=== PATIENT | female | born 1960 | race Caucasian/White ===

== ENCOUNTER 2016-05-05 10:26 | Emergency (ER) | payer OTHER ==
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
--- NOTE | 2016-05-06 07:58 | ED MAR SUMMARY ---
..... Medication Administration Record [facility] [address] [place], [place] [id number] Patient: ROE RUTLEDGE Visit ID: [id number] 56y, F Weight: 74.8 kg Height/Length: 64 in BMI: 28.3 ALLERGIES: No Known Drug Allergy
--- NOTE | 2016-05-06 07:58 | ED DISCHARGE INSTRUCTIONS ---
Patient: ROE RUTLEDGE General Instructions [facility] VisitID: [id number] [place] [address] 56y, F Registration Date/Time: 05/05/2016 Essential hypertension. 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 Sensory deficit present. No radiculopathy. Episodic tension-type headache resistant to treatment. INSTRUCTIONS Do not work for three. No alcohol until released. Warnings: Further evaluation is necessary in order to conduct further tests and assess the possibility of serious illness. It is very important to follow up with a physician. SEDATIVE MEDICATION: You were given sedative medication during your visit. Do not drive or operate dangerous machinery. CONTROLLED SUBSTANCE WARNINGS. GENERAL WARNINGS: Return or contact your physician immediately if your condition worsens or changes unexpectedly, if not improving as expected, or if other problems arise. Your Current Medications: CONTINUE TAKING THE FOLLOWING MEDICATIONS: Amitriptyline HCl Oral. Atenolol Oral : 50 mg daily, out of med. Baclofen 10mg day*. FLUoxetine HCl Oral : 20 mg 4x a day. Hydrochlorothiazide Oral : 25 mg 2x a day. Tramadol HCL Oral : 50 mg, prn, out of med. Prescription Medications: Hydrocodone/APAP 5mg/325mg: take 1 to 2 orally every 6 hours as needed for pain. Dispense fifteen (15). No refills. OTC Medications: Acetaminophen (available over the counter): take according to label instructions. Follow-up: Screening today revealed the patient's blood pressure to be in the hypertensive range. The patient should follow up with a primary care provider for blood pressure management. ADDITIONAL INFORMATION Tension Headache Muscle Tension Headache (also called "stress headache") is a very common cause of head pain. Under stress, some people tense the muscles of their shoulder, neck and scalp without knowing it. If this lasts long enough, a headache can occur. These headaches can be very painful and last for hours or even days. Home Care: If you were given pain medicine for this headache, do not drive yourself home. Arrange for a ride, instead. When you get home, try to sleep. You should feel much better when you wake up. Heat to the back of your neck may relieve neck spasm. Drink only clear liquids or eat a very light diet to avoid nausea/vomiting until symptoms improve. Preventing Future Headaches Identify the sources of stress in your life. These may not be obvious! Learn new ways to handle your stress, such as regular exercise, biofeedback, self-hypnosis and meditation. For more information about this, consult your doctor or go to a local bookstore and review the many books and tapes on this subject. At the first sign of a tension headache, take time out if possible. Remove yourself from the stressful situation, find a quiet comfortable place to sit or lie down and let yourself relax. Heat and deep massage of the tight areas in the neck and shoulders may help reduce muscle spasm. Medicine, such as ibuprofen (Advil or Motrin) or a prescribed muscle relaxant may be helpful at this point. Follow Up with your doctor if the headache is not better within the next 24 hours. If you have frequent headaches you should discuss a treatment plan with your primary care doctor. Ask if you can have medicine to take at home the next time you get a bad headache. This may avoid the need for a visit to the emergency department in the future. Poorly controlled chronic headaches may require a referral to a neurologist (headache specialist). Get Prompt Medical Attention if any of the following occur: Worsening of your head pain or no improvement within 24 hours Repeated vomiting (unable to keep liquids down) Fever of 100.4F (38C) or higher, or as directed by your healthcare provider Stiff neck Extreme drowsiness, confusion or fainting Dizziness, vertigo (dizziness with spinning sensation) Weakness of an arm or leg or one side of the face Difficulty with speech or vision High Blood Pressure --Established High Blood Pressure (Hypertension) is a chronic disease. The cause is unknown in most cases. It can usually be controlled with lifestyle changes and/or medicines. Symptoms of high blood pressure may include headache, dizziness, visual changes, chest pain and shortness of breath. Sometimes it causes no symptoms at all. However, even if there are no symptoms, untreated high blood pressure increases the risk of heart attack, also known as acute myocardial infarction, or AMI, and stroke. It is a serious health risk and should not be ignored. A normal blood pressure is 120/80 or less. The first (top) number is the "systolic" pressure. The second (bottom) number is the "diastolic" pressure. Hypertension exists when either the top number is 140 or higher, OR the bottom number is 90 or higher on repeated measurements. Home Care: All patients with high blood pressure should do the following to lower their pressure. If you are on medicines, then these methods may reduce or eliminate your need for medicines in the future. Begin a weight loss program if you are overweight. Reduce your salt intake. Avoid high salt foods (olives, pickles, smoked meats, salted potato chips, etc.). Do not add salt to your food at the table. Use only small amounts of salt when cooking. Begin an exercise program. Discuss with your doctor what type of exercise program would be best for you. It doesn't have to be difficult. Even brisk walking for 20 minutes three times a week is a good form of exercise. Avoid medicines which contain heart stimulants. This includes many cold and sinus decongestant pills and sprays as well as diet pills. Check the warnings about hypertension on the label. Stimulants such as amphetamine or cocaine could be lethal for someone with hypertension. Never take these. Limit your caffeine intake or switch to caffeine-free products. Stop smoking. If you are a long-time smoker, this can be hard. Enroll in a stop-smoking program to improve your chance of success. Learning how to handle stress better is an important part of any program to lower blood pressure. Learn about relaxation methods such as meditation, yoga or biofeedback. If medicines were prescribed, take them exactly as directed. Missing doses may cause your blood pressure get out of control. Consider buying an automatic blood pressure machine (available at most pharmacies). Use this to monitor your blood pressure at home and report the results to your doctor. Follow Up: Regular visits to your own physician for blood pressure checks and medicine adjustment is an important part of your care. Make a follow-up appointment as directed by our staff. Get Prompt Medical Attention if any of the following occur: Chest pain or shortness of breath Severe headache Throbbing or rushing sound in the ears Nosebleed Sudden severe abdominal pain Extreme drowsiness, confusion or fainting Dizziness or vertigo (dizziness with spinning sensation) Weakness of an arm or leg or one side of the face Difficulty with speech or vision Back Pain [Acute Or Chronic] Back pain is usually caused by an injury to the muscles or ligaments of the spine. Sometimes the disks that separate each bone in the spine may bulge and cause pain by pressing on a nearby nerve. Back pain may also appear after a sudden twisting/bending force (such as in a car accident), after a simple awkward movement, or lifting something heavy with poor body positioning. In either case, muscle spasm is often present and adds to the pain. Acute back pain usually gets better in one to two weeks. Back pain related to disk disease, arthritis in the spinal joints or spinal stenosis (narrowing of the spinal canal) can become chronic and last for months or years. Unless you had a physical injury (for example, a car accident or fall) X-rays are usually not ordered for the initial evaluation of back pain. If pain continues and does not respond to medical treatment, x-rays and other tests may be performed at a later time. Home Care: You may need to stay in bed the first few days. But, as soon as possible, begin sitting or walking to avoid problems with prolonged bed rest (muscle weakness, worsening back stiffness and pain, blood clots in the legs). When in bed, try to find a position of comfort. A firm mattress is best. Try lying flat on your back with pillows under your knees. You can also try lying on your side with your knees bent up towards your chest and a pillow between your knees. Avoid prolonged sitting. This puts more stress on the lower back than standing or walking. During the first two days after injury, apply an ICE PACK to the painful area for 20 minutes every 2-4 hours. This will reduce swelling and pain. HEAT (hot shower, hot bath or heating pad) works well for muscle spasm. You can start with ice, then switch to heat after two days. Some patients feel best alternating ice and heat treatments. Use the one method that feels the best to you. You may use acetaminophen (Tylenol) or ibuprofen (Motrin, Advil) to control pain, unless another pain medicine was prescribed. [NOTE: If you have chronic liver or kidney disease or ever had a stomach ulcer or GI bleeding, talk with your doctor before using these medicines.] Be aware of safe lifting methods and do not lift anything over 15 pounds until all the pain is gone. Follow Up with your doctor or this facility if your symptoms do not start to improve after one week. Physical therapy may be needed. [NOTE: If X-rays were taken, they will be reviewed by a radiologist. You will be notified of any new findings that may affect your care.] Get Prompt Medical Attention if any of the following occur: Pain becomes worse or spreads to your legs Weakness or numbness in one or both legs Loss of bowel or bladder control Numbness in the groin or genital area Hydrocodone Bitartrate, Acetaminophen Oral tablet What is this medicine? ACETAMINOPHEN; HYDROCODONE (a set a MICHELLE chang fen; isabella droe KOE done) is a pain reliever. It is used to treat mild to moderate pain. How should I use this medicine? Take this medicine by mouth. Swallow it with a full glass of water. Follow the directions on the prescription label. If the medicine upsets your stomach, take the medicine with food or milk. Do not take more than you are told to take. Talk to your sales and marketing representative regarding the use of this medicine in children. This medicine is not approved for use in children. What side effects may I notice from receiving this medicine? Side effects that you should report to your doctor or health home care rn as soon as possible: allergic reactions like skin rash, itching or hives, swelling of the face, lips, or tongue breathing problems confusion feeling faint or lightheaded, falls stomach pain yellowing of the eyes or skin Side effects that usually do not require medical attention (report to your doctor or health home care rn if they continue or are bothersome): nausea, vomiting stomach upset What may interact with this medicine? alcohol antihistamines isoniazid medicines for depression, anxiety, or psychotic disturbances medicines for sleep muscle relaxants naltrexone narcotic medicines (opiates) for pain phenobarbital ritonavir tramadol What if I miss a dose? If you miss a dose, take it as soon as you can. If it is almost time for your next dose, take only that dose. Do not take double or extra doses. Where should I keep my medicine? Keep out of the reach of children. This medicine can be abused. Keep your medicine in a safe place to protect it from theft. Do not share this medicine with anyone. Selling or giving away this medicine is dangerous and against the law. Store at room temperature between 15 and 30 degrees C (59 and 86 degrees F). Protect from light. Keep container tightly closed. Throw away any unused medicine after the expiration date. Discard unused medicine and used packaging carefully. Pets and children can be harmed if they find used or lost packages. What should I tell my health care provider before I take this medicine? They need to know if you have any of these conditions: brain tumor Crohn's disease, inflammatory bowel disease, or ulcerative colitis drink more than 3 alcohol-containing drinks per day drug abuse or addiction head injury heart or circulation problems kidney disease or problems going to the bathroom liver disease lung disease, asthma, or breathing problems an unusual or allergic reaction to acetaminophen, hydrocodone, other opioid analgesics, other medicines, foods, dyes, or preservatives or trying to get breast-feeding What should I watch for while using this medicine? Tell your doctor or health home care rn if your pain does not go away, if it gets worse, or if you have new or a different type of pain. You may develop tolerance to the medicine. Tolerance means that you will need a higher dose of the medicine for pain relief. Tolerance is normal and is expected if you take the medicine for a long time. Do not suddenly stop taking your medicine because you may develop a severe reaction. Your body becomes used to the medicine. This does NOT mean you are addicted. Addiction is a behavior related to getting and using a drug for a non-medical reason. If you have pain, you have a medical reason to take pain medicine. Your doctor will tell you how much medicine to take. If your doctor wants you to stop the medicine, the dose will be slowly lowered over time to avoid any side effects. You may get drowsy or dizzy when you first start taking the medicine or change doses. Do not drive, use machinery, or do anything that may be dangerous until you know how the medicine affects you. Stand or sit up slowly. There are different types of narcotic medicines (opiates) for pain. If you take more than one type at the same time, you may have more side effects. Give your health care provider a list of all medicines you use. Your doctor will tell you how much medicine to take. Do not take more medicine than directed. Call emergency for help if you have problems breathing. The medicine will cause constipation. Try to have a bowel movement at least every 2 to 3 days. If you do not have a bowel movement for 3 days, call your doctor or health home care rn. Too much acetaminophen can be very dangerous. Do not take Tylenol (acetaminophen) or medicines that contain acetaminophen with this medicine. Many non-prescription medicines contain acetaminophen. Always read the labels carefully. You have been given the following additional information: Headache, Tension Hypertension, Established Back Pain (Acute Or Chronic) Hydrocodone Bitartrate, Acetaminophen Oral tablet Do not work for three. (Electronically signed by Jaylen Odom DO 05/06/2016 7:58)
--- NOTE | 2016-05-06 07:58 | ED MED RECONCILIATION SUMMARY ---
Patient: ROE RUTLEDGE Medication Reconciliation Report [facility] VisitID: [id number] [address] [place] [address] 56y, F Registration Date/Time: 05/05/2016 Weight: 74.8 kg Height/Length: 64 in. BMI: 28.3 ALLERGIES: No Known Drug Allergy The patient's Home Medications are listed below: CONTINUE TAKING THE FOLLOWING MEDICATIONS: Amitriptyline HCl Oral Atenolol Oral 50 mg, daily, out of med Baclofen 10mg day FLUoxetine HCl Oral 20 mg, 4x a day Hydrochlorothiazide Oral 25 mg, 2x a day Tramadol HCL Oral 50 mg, out of med The source(s) of the original Home Medication information: patient The following Medications were given to the patient in the Emergency Department: None. The following Medications were prescribed to the patient: Acetaminophen (available over the counter): take according to label instructions. -- Jaylen Odom DO Hydrocodone/APAP 5mg/325mg: take 1 to 2 orally every 6 hours as needed for pain. Dispense fifteen (15). No refills. -- Jaylen Odom DO
--- NOTE | 2016-05-06 07:58 | ED MED RECONCILIATION SUMMARY ---
Patient: ROE RUTLEDGE Medication Reconciliation Report [facility] VisitID: [id number] [address] [place] [address] 56y, F Registration Date/Time: 05/05/2016 Weight: 74.8 kg Height/Length: 64 in. BMI: 28.3 ALLERGIES: No Known Drug Allergy The patient's Home Medications are listed below: CONTINUE TAKING THE FOLLOWING MEDICATIONS: Amitriptyline HCl Oral Atenolol Oral 50 mg, daily, out of med Baclofen 10mg day FLUoxetine HCl Oral 20 mg, 4x a day Hydrochlorothiazide Oral 25 mg, 2x a day Tramadol HCL Oral 50 mg, out of med The source(s) of the original Home Medication information: patient The following Medications were given to the patient in the Emergency Department: None. The following Medications were prescribed to the patient: Acetaminophen (available over the counter): take according to label instructions. -- Jaylen Odom DO Hydrocodone/APAP 5mg/325mg: take 1 to 2 orally every 6 hours as needed for pain. Dispense fifteen (15). No refills. -- Jaylen Odom DO
--- NOTE | 2016-05-06 07:58 | ED MAR SUMMARY ---
..... Medication Administration Record [facility] [address] [place], [place] [id number] Patient: ROE RUTLEDGE Visit ID: [id number] 56y, F Weight: 74.8 kg Height/Length: 64 in BMI: 28.3 ALLERGIES: No Known Drug Allergy
== END 2016-05-05 11:45 | disposition home or self-care (01) ==
LOC: ED SRH 10:26
DX: G44.201 Tension-type headache, unspecified, intractable (principal); S29.012A Strain of muscle and tendon of back wall of thorax, initial encounter; M47.814 Spondylosis without myelopathy or radiculopathy, thoracic region; M51.24 Other intervertebral disc displacement, thoracic region; X58.XXXA Exposure to other specified factors, initial encounter; Y93.9 Activity, unspecified; Y92.9 Unspecified place or not applicable; Y99.9 Unspecified external cause status; Z79.899 Other long term (current) drug therapy; I10 Essential (primary) hypertension

== ENCOUNTER 2016-06-27 23:28 | Emergency (ER) | payer OTHER ==
--- NOTE | 2016-06-28 01:53 | ED NURSING NOTES ---
Clinical Report - Nurses [facility] [address] [place] [address] 06/27/2016 23:28 Patient: ROE RUTLEDGE TRIAGE 23:37 06/27/16. BP: 153/90. HR: 86. RR: 16. O2 saturation: 100%. Temp: 98.0 F. Pain level now 09/24. --23:37 Antonette Villavicencio R.N. late entry - 23:35 06/27/16. --00:40 Antonette Villavicencio R.N. Triage time 23:33 Jun 27 2016. Acuity: LEVEL 4. Chief Complaint: (right neck pain, dizzy, off balance , "seeing stars"). 23:37 06/27/16. SEPSIS SCREEN: Sepsis Screen. Negative (no infection suspected/documented). PIOTR COMA SCORE: [place] Coma Scale: 15- eyes open spontaneously (4); best verbal response- oriented x 4 (5); best motor response- obeys commands (6). --23:37 Antonette Villavicencio R.N. Weight: 74.8 kg. Height/Length: 65 inches. BMI: 27.5. --23:32 Antonette Villavicencio R.N. Medications Naproxen Oral. --23:35 Antonette Villavicencio R.N. Tramadol. --23:35 Antonette Villavicencio R.N. Atenolol. --23:35 Antonette Villavicencio R.N. Hydrochlo. --23:35 Antonette Villavicencio R.N. Amitriptyline HCl Oral. Hydrochlorothiazide Oral. --23:35 Antonette Villavicencio R.N. FLUoxetine HCl Oral. --23:36 Antonette Villavicencio R.N. Baclofen External. --23:36 Antonette Villavicencio R.N. Allergies No Known Drug Allergy. --01:48 Antonette Villavicencio R.N. Medication/allergy information source: the patient. --23:37 Antonette Villavicencio R.N. History Arrived by private vehicle. Historian: patient. Accompanied by family. Onset. (chronic). No fever, weakness, cough, difficulty breathing or skin rash. Denies muscle aches. 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 PAST MEDICAL HX: Immunizations: seasonal influenza. Has not received pneumonia vaccine. SOCIAL HX: Never smoker. No alcohol use or drug use. No infectious disease exposure. ABUSE ASSESSMENT: No report of abuse. SELF HARM ASSESSMENT: A self harm assessment was performed. The patient answered "no" to the question "Have you recently felt down, depressed, or hopeless?", "Have you noticed less interest or pleasure in doing things?", "Do you have thoughts of harming or killing yourself?", "Are you here because you tried to hurt yourself?", "Have you ever tried to hurt yourself before today?", "Have you recently had thoughts about harming or killing others?" and "Do you have any dangerous items in your possession?". --23:37 Antonette Villavicencio R.N. ( Patients states long standing history of cervical disc problems. She has had several workups by primary care and has been referred to neurosurgery but does not have an appointment yet. She is unable to see her primary care for pain management until late July. She states that the pain is getting worse, affecting her vision and balance.). --00:40 Antonette Villavicencio R.N. PROBLEMS: Myofascial Strain. Migraine Headache. Chronic Headache. Headache. Back Pain. Sprain. Scoliosis. TMJ Syndrome. Degenerative Joint Disease. Hypertension. --23:37 Antonette Villavicencio R.N. ADDITIONAL SURGERIES: Knee Surgery. Tonsillectomy. Tubal Ligation. --23:37 Antonette Villavicencio R.N. Interventions ID band on patient. --23:37 Antonette Villavicencio R.N. PHYSICAL ASSESSMENT 00:08 06/28/16. Ambulatory to room. GENERAL / NEURO / PSYCH: Alert. Oriented X 4. Appears in no acute distress. ( ambulates with steady gait). No weakness. HEENT: Pupils equal, round and reactive to light. No facial asymmetry noted. ( tingling to right side neck, constant). Mucous membranes are pink. RESPIRATORY: Breath sounds within normal limits. CVS: Pulses within normal limits. GI / : Abdomen soft. EXTREMITIES: No motor deficit in the extremities. Sensation intact. Normal gait. No pain with weight bearing. SKIN: Skin intact. Skin is warm and dry. Normal skin turgor. --00:08 Antonette Villavicencio R.N. NURSING PROGRESS NOTES 23:33 06/27/16. The initial plan of care for this patient includes an assessment with efforts to address the presence of pain. This plan of care was discussed with the patient. Reassurance given. Patient identifiers checked. Call light placed in reach. Bed placed in lowest position. Brakes of bed on. --23:44 Antonette Villavicencio R.N. DISPOSITION / DISCHARGE 02:00 06/28/16. Departure time: :Jun 28 2016. Condition at departure: improved and stable. The goals identified in the patient's plan of care were met. No learning barriers present. Discharge instructions provided and reviewed with the patient. Reviewed medication(s) side effects, precautions, dosing and course information. Prescription(s) given to the patient. Patient verbalized understanding. Written instructions provided in [place]. The patient was discharged home and accompanied by chief meteorologist. She left the Emergency Department ambulatory and via private vehicle. Automotive Center Manager driving. FALL RISK ASSESSMENT: Fall risk assessment completed. No fall risk identified. --02:00 Antonette Villavicencio R.N. 01:59 06/28/16. BP: 146/76. HR: 74. RR: 18. O2 saturation: 100%. Pain level now: 10/24. 23:33 06/27/16. BP: 153/90. HR: 86. RR: 16. O2 saturation: 100%. Temp: 98.0 F. Pain level now 10. --02:00 Antonette Villavicencio R.N. Locked/Released at 06/28/2016 2:00 by Antonette Villavicencio R.N.
--- NOTE | 2016-06-28 01:53 | ED CLINICAL REPORT ---
Clinical Report - Physicians/Mid Levels [facility] [address] [place] [address] 06/27/2016 23:28 Patient: ROE RUTLEDGE Time Seen: 00:20 Jun 28 2016. Arrived- By private vehicle. Historian- patient. CPT: ER phys charges level 4 (#[id number]). HISTORY OF PRESENT ILLNESS Chief Complaint: CHRONIC NECK PAIN ANTOINE. (Has peripheral flashing lights in vision at times. Also reports vertigo today with room spinning.). It is still present. It is described as being moderate in degree and in the area of the cervical spine, right side of the cervical spine and right trapezius. The quality is noted to be sharp, aching and "pain". No bladder dysfunction, bowel dysfunction, sensory loss or motor loss. Patient denies an injury. No other injury. Similar symptoms previously: Recent medical care: Not recently seen/assessed. REVIEW OF SYSTEMS No fever, chills, eye discomfort, headache or depression. No sore throat, cough, difficulty breathing, chest pain or skin rash. No abdominal pain, nausea, vomiting, diarrhea or black stools. No difficulty with urination, urinary frequency or hematuria. All systems otherwise negative, except as recorded above. PAST HISTORY Known neck DJD and referred to neurosurgery after neck CT at [facility] 3 weeks ago. Hydrocephalus since : Has been evaluated since age 32: no intervention. Medications: Baclofen External. FLUoxetine HCl Oral. Amitriptyline HCl Oral. Hydrochlorothiazide Oral. Hydrochlo. Atenolol. Tramadol. Naproxen Oral. Allergies: No Known Drug Allergy. SOCIAL HISTORY Never smoker. No alcohol use or drug use. ADDITIONAL NOTES The nursing notes have been reviewed. PHYSICAL EXAM Vital Signs: 06/27/2016 23:37 BP: 153/90. HR: 86. RR: 16. O2 saturation: 100%. Temp: 98.0 F. HEENT: Normal external inspection. Eyes: Pupils equal, round and reactive to light. Ear (left): There is dullness and bulging of the tympanic membrane and fluid behind the tympanic membrane. Ear (right): There is dullness and bulging of the tympanic membrane and fluid behind the tympanic membrane. Neck: Normal inspection. Muscle spasm of the neck. Decrease in ROM. CVS: Normal heart rate and rhythm. Heart sounds normal. Pulses normal. Respiratory: No respiratory distress. Breath sounds normal. Chest nontender. Abdomen: Soft and nontender. Skin: Skin warm. Normal skin color. No rash. Extremities: Extremities exhibit normal ROM. Neuro: Oriented X 3. Mood/affect normal. No motor deficit. No sensory deficit. Reflexes normal. LABS, X-RAYS, AND EKG CT Head: No acute disease. PROGRESS AND PROCEDURES Patient/family counseled. Disposition: Discharged. Condition: stable. CLINICAL IMPRESSION Hydrocephalus with transient visual changes. Severe neck DJD ANTOINE due to the above. Acute benign positional vertigo Bilateral otitis media. INSTRUCTIONS Apply moist heat for 15-20 minutes three times a day for one weeks. Limit lifting. No strenuous activity. Rest. (Continue muscle relaxant. Decongestant of choice.). Warnings: GENERAL WARNINGS: Return or contact your physician immediately if your condition worsens or changes unexpectedly, if not improving as expected, or if other problems arise. Your Current Medications: CONTINUE TAKING THE FOLLOWING MEDICATIONS: Amitriptyline HCl Oral. Atenolol*. Baclofen External. FLUoxetine HCl Oral. Hydrochlo*. Hydrochlorothiazide Oral. Naproxen Oral. Tramadol*. Prescription Medications: Oxycodone/APAP 5 mg/325 mg: take 1-2 tablets orally every 6 hours as needed for pain. Dispense ten (10). No refill. Zithromax 250 mg tablets: take 2 orally today, followed by 1 daily for the next 4 days. No refills. Substitution is permissible. Scopolamine patch : apply behind ear q 72 hours prn vertigo. # 6. Follow-up: Follow up with your doctor in one week. Call for an appointment. Reason for referral: ear fluid and vertigo. Follow up with a neurologist. Call for the next available appointment. Reason for referral: hydrocephalus, vertigo, visual symptoms. Understanding of the discharge instructions verbalized by patient. Discharge instructions reviewed with and understanding was verbalized by public relations counselor. (Electronically signed by Ankit Webber MD 06/30/2016 9:59)
--- NOTE | 2016-06-28 01:53 | ED ORDER SUMMARY ---
..... Patient: ROE RUTLEDGE OrderSheet [facility] VisitID: [id number] [address] [place] [address] 56y, F Registration Date/Time: 06/27/2016 ORDER SHEET Weight: 74.8 kg Allergies: No Known Drug Allergy GENERAL ORDERS: CT Head wo Cont Urgent (00:37 06/28/2016 Millie GARZA) (Ack 0:39 AMcQuoid ER Tech1) (1:05 Tez) MEDICATION ORDERS: IV FLUIDS: ORDER SHEET NOTES: [Electronically signed by Antonette Villavicencio R.N. (02:00 06/28/2016)] [Electronically signed by Antonette Villavicencio R.N. (02:00 06/28/2016)] [Electronically signed by Ankit Webber MD (09:59 06/30/2016)] [Electronically locked/signed by Antonette Villavicencio R.N. (02:00 06/28/2016)]
--- NOTE | 2016-06-28 01:53 | ED CLINICAL REPORT ---
Clinical Report - Physicians/Mid Levels [facility] [address] [place] [address] 06/27/2016 23:28 Patient: ROE RUTLEDGE Time Seen: 00:20 Jun 28 2016. Arrived- By private vehicle. Historian- patient. CPT: ER phys charges level 4 (#[id number]). HISTORY OF PRESENT ILLNESS Chief Complaint: CHRONIC NECK PAIN ANTOINE. (Has peripheral flashing lights in vision at times. Also reports vertigo today with room spinning.). It is still present. It is described as being moderate in degree and in the area of the cervical spine, right side of the cervical spine and right trapezius. The quality is noted to be sharp, aching and "pain". No bladder dysfunction, bowel dysfunction, sensory loss or motor loss. Patient denies an injury. No other injury. Similar symptoms previously: Recent medical care: Not recently seen/assessed. REVIEW OF SYSTEMS No fever, chills, eye discomfort, headache or depression. No sore throat, cough, difficulty breathing, chest pain or skin rash. No abdominal pain, nausea, vomiting, diarrhea or black stools. No difficulty with urination, urinary frequency or hematuria. All systems otherwise negative, except as recorded above. PAST HISTORY Known neck DJD and referred to neurosurgery after neck CT at [facility] 3 weeks ago. Hydrocephalus since : Has been evaluated since age 32: no intervention. Medications: Baclofen External. FLUoxetine HCl Oral. Amitriptyline HCl Oral. Hydrochlorothiazide Oral. Hydrochlo. Atenolol. Tramadol. Naproxen Oral. Allergies: No Known Drug Allergy. SOCIAL HISTORY Never smoker. No alcohol use or drug use. ADDITIONAL NOTES The nursing notes have been reviewed. PHYSICAL EXAM Vital Signs: 06/27/2016 23:37 BP: 153/90. HR: 86. RR: 16. O2 saturation: 100%. Temp: 98.0 F. HEENT: Normal external inspection. Eyes: Pupils equal, round and reactive to light. Ear (left): There is dullness and bulging of the tympanic membrane and fluid behind the tympanic membrane. Ear (right): There is dullness and bulging of the tympanic membrane and fluid behind the tympanic membrane. Neck: Normal inspection. Muscle spasm of the neck. Decrease in ROM. CVS: Normal heart rate and rhythm. Heart sounds normal. Pulses normal. Respiratory: No respiratory distress. Breath sounds normal. Chest nontender. Abdomen: Soft and nontender. Skin: Skin warm. Normal skin color. No rash. Extremities: Extremities exhibit normal ROM. Neuro: Oriented X 3. Mood/affect normal. No motor deficit. No sensory deficit. Reflexes normal. LABS, X-RAYS, AND EKG CT Head: No acute disease. PROGRESS AND PROCEDURES Patient/family counseled. Disposition: Discharged. Condition: stable. CLINICAL IMPRESSION Hydrocephalus with transient visual changes. Severe neck DJD ANTOINE due to the above. Acute benign positional vertigo Bilateral otitis media. INSTRUCTIONS Apply moist heat for 15-20 minutes three times a day for one weeks. Limit lifting. No strenuous activity. Rest. (Continue muscle relaxant. Decongestant of choice.). Warnings: GENERAL WARNINGS: Return or contact your physician immediately if your condition worsens or changes unexpectedly, if not improving as expected, or if other problems arise. Your Current Medications: CONTINUE TAKING THE FOLLOWING MEDICATIONS: Amitriptyline HCl Oral. Atenolol*. Baclofen External. FLUoxetine HCl Oral. Hydrochlo*. Hydrochlorothiazide Oral. Naproxen Oral. Tramadol*. Prescription Medications: Oxycodone/APAP 5 mg/325 mg: take 1-2 tablets orally every 6 hours as needed for pain. Dispense ten (10). No refill. Zithromax 250 mg tablets: take 2 orally today, followed by 1 daily for the next 4 days. No refills. Substitution is permissible. Scopolamine patch : apply behind ear q 72 hours prn vertigo. # 6. Follow-up: Follow up with your doctor in one week. Call for an appointment. Reason for referral: ear fluid and vertigo. Follow up with a neurologist. Call for the next available appointment. Reason for referral: hydrocephalus, vertigo, visual symptoms. Understanding of the discharge instructions verbalized by patient. Discharge instructions reviewed with and understanding was verbalized by robotics technician. (Electronically signed by Ankit Webber MD 06/30/2016 9:59)
--- NOTE | 2016-06-28 01:53 | ED NURSING NOTES ---
Clinical Report - Nurses [facility] [address] [place] [address] 06/27/2016 23:28 Patient: ROE RUTLEDGE TRIAGE 23:37 06/27/16. BP: 153/90. HR: 86. RR: 16. O2 saturation: 100%. Temp: 98.0 F. Pain level now 09/24. --23:37 Antonette Villavicencio R.N. late entry - 23:35 06/27/16. --00:40 Antonette Villavicencio R.N. Triage time 23:33 Jun 27 2016. Acuity: LEVEL 4. Chief Complaint: (right neck pain, dizzy, off balance , "seeing stars"). 23:37 06/27/16. SEPSIS SCREEN: Sepsis Screen. Negative (no infection suspected/documented). PIOTR COMA SCORE: Gray Coma Scale: 15- eyes open spontaneously (4); best verbal response- oriented x 4 (5); best motor response- obeys commands (6). --23:37 Antonette Villavicencio R.N. Weight: 74.8 kg. Height/Length: 65 inches. BMI: 27.5. --23:32 Antonette Villavicencio R.N. Medications Naproxen Oral. --23:35 Antonette Villavicencio R.N. Tramadol. --23:35 Antonette Villavicencio R.N. Atenolol. --23:35 Antonette Villavicencio R.N. Hydrochlo. --23:35 Antonette Villavicencio R.N. Amitriptyline HCl Oral. Hydrochlorothiazide Oral. --23:35 Antonette Villavicencio R.N. FLUoxetine HCl Oral. --23:36 Antonette Villavicencio R.N. Baclofen External. --23:36 Antonette Villavicencio R.N. Allergies No Known Drug Allergy. --01:48 Antonette Villavicencio R.N. Medication/allergy information source: the patient. --23:37 Antonette Villavicencio R.N. History Arrived by private vehicle. Historian: patient. Accompanied by family. Onset. (chronic). No fever, weakness, cough, difficulty breathing or skin rash. Denies muscle aches. 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 PAST MEDICAL HX: Immunizations: seasonal influenza. Has not received pneumonia vaccine. SOCIAL HX: Never smoker. No alcohol use or drug use. No infectious disease exposure. ABUSE ASSESSMENT: No report of abuse. SELF HARM ASSESSMENT: A self harm assessment was performed. The patient answered "no" to the question "Have you recently felt down, depressed, or hopeless?", "Have you noticed less interest or pleasure in doing things?", "Do you have thoughts of harming or killing yourself?", "Are you here because you tried to hurt yourself?", "Have you ever tried to hurt yourself before today?", "Have you recently had thoughts about harming or killing others?" and "Do you have any dangerous items in your possession?". --23:37 Antonette Villavicencio R.N. ( Patients states long standing history of cervical disc problems. She has had several workups by primary care and has been referred to neurosurgery but does not have an appointment yet. She is unable to see her primary care for pain management until late July. She states that the pain is getting worse, affecting her vision and balance.). --00:40 Antonette Villavicencio R.N. PROBLEMS: Myofascial Strain. Migraine Headache. Chronic Headache. Headache. Back Pain. Sprain. Scoliosis. TMJ Syndrome. Degenerative Joint Disease. Hypertension. --23:37 Antonette Villavicencio R.N. ADDITIONAL SURGERIES: Knee Surgery. Tonsillectomy. Tubal Ligation. --23:37 Antonette Villavicencio R.N. Interventions ID band on patient. --23:37 Antonette Villavicencio R.N. PHYSICAL ASSESSMENT 00:08 06/28/16. Ambulatory to room. GENERAL / NEURO / PSYCH: Alert. Oriented X 4. Appears in no acute distress. ( ambulates with steady gait). No weakness. HEENT: Pupils equal, round and reactive to light. No facial asymmetry noted. ( tingling to right side neck, constant). Mucous membranes are pink. RESPIRATORY: Breath sounds within normal limits. CVS: Pulses within normal limits. GI / : Abdomen soft. EXTREMITIES: No motor deficit in the extremities. Sensation intact. Normal gait. No pain with weight bearing. SKIN: Skin intact. Skin is warm and dry. Normal skin turgor. --00:08 Antonette Villavicencio R.N. NURSING PROGRESS NOTES 23:33 06/27/16. The initial plan of care for this patient includes an assessment with efforts to address the presence of pain. This plan of care was discussed with the patient. Reassurance given. Patient identifiers checked. Call light placed in reach. Bed placed in lowest position. Brakes of bed on. --23:44 Antonette Villavicencio R.N. DISPOSITION / DISCHARGE 02:00 06/28/16. Departure time: :Jun 28 2016. Condition at departure: improved and stable. The goals identified in the patient's plan of care were met. No learning barriers present. Discharge instructions provided and reviewed with the patient. Reviewed medication(s) side effects, precautions, dosing and course information. Prescription(s) given to the patient. Patient verbalized understanding. Written instructions provided in Barbadian. The patient was discharged home and accompanied by automobile leasing supervisor. She left the Emergency Department ambulatory and via private vehicle. Sleeve Tailor driving. FALL RISK ASSESSMENT: Fall risk assessment completed. No fall risk identified. --02:00 Antonette Villavicencio R.N. 01:59 06/28/16. BP: 146/76. HR: 74. RR: 18. O2 saturation: 100%. Pain level now: 10/24. 23:33 06/27/16. BP: 153/90. HR: 86. RR: 16. O2 saturation: 100%. Temp: 98.0 F. Pain level now 10. --02:00 Antonette Villavicencio R.N. Locked/Released at 06/28/2016 2:00 by Antonette Villavicencio R.N.
--- NOTE | 2016-06-28 01:53 | ED ORDER SUMMARY ---
..... Patient: ROE RUTLEDGE OrderSheet [facility] VisitID: [id number] [address] [place] [address] 56y, F Registration Date/Time: 06/27/2016 ORDER SHEET Weight: 74.8 kg Allergies: No Known Drug Allergy GENERAL ORDERS: CT Head wo Cont Urgent (00:37 06/28/2016 Millie GARZA) (Ack 0:39 AMcQuoid ER Tech1) (1:05 Tez) MEDICATION ORDERS: IV FLUIDS: ORDER SHEET NOTES: [Electronically signed by Antonette Villavicencio R.N. (02:00 06/28/2016)] [Electronically signed by Antonette Villavicencio R.N. (02:00 06/28/2016)] [Electronically signed by Ankit Webber MD (09:59 06/30/2016)] [Electronically locked/signed by Antonette Villavicencio R.N. (02:00 06/28/2016)]
--- NOTE | 2016-06-28 06:34 | DIAGNOSTIC IMAGING REPORT ---
PROCEDURE: CT HEAD WITHOUT CONTRAST INDICATION: DIZZINESS TECHNIQUE: Noncontrast axial images with sagittal and coronal reformations. Preliminary report provided by Sujatha Storm MD ([facility]). COMPARISON: None. FINDINGS: There is moderate to severe chronic hydrocephalus with marked dilation of the occipital horns, moderate dilation of the third ventricle and mild dilation of the fourth ventricle. This is associated with chronic atrophy and thinning of the occipital and parietal cortices. Brain is otherwise normal there is no evidence of an acute process or hemorrhage. Sinuses and mastoids are normal. IMPRESSION: 1. Moderate to severe chronic hydrocephalous. 2. Otherwise negative head CT. 3. Findings discussed with Dr. Ankit Webber at [address] scans at this facility use dose modulation, iterative reconstruction, and/or weight-based dosing when appropriate to reduce radiation dose to as low as reasonably achievable.
--- NOTE | 2016-06-28 06:34 | DIAGNOSTIC IMAGING REPORT ---
PROCEDURE: CT HEAD WITHOUT CONTRAST INDICATION: DIZZINESS TECHNIQUE: Noncontrast axial images with sagittal and coronal reformations. Preliminary report provided by Sujatha Storm MD ([facility]). COMPARISON: None. FINDINGS: There is moderate to severe chronic hydrocephalus with marked dilation of the occipital horns, moderate dilation of the third ventricle and mild dilation of the fourth ventricle. This is associated with chronic atrophy and thinning of the occipital and parietal cortices. Brain is otherwise normal there is no evidence of an acute process or hemorrhage. Sinuses and mastoids are normal. IMPRESSION: 1. Moderate to severe chronic hydrocephalous. 2. Otherwise negative head CT. 3. Findings discussed with Dr. Ankit Webber at [address] scans at this facility use dose modulation, iterative reconstruction, and/or weight-based dosing when appropriate to reduce radiation dose to as low as reasonably achievable.
--- NOTE | 2016-06-30 09:59 | ED MED RECONCILIATION SUMMARY ---
Patient: ROE RUTLEDGE Medication Reconciliation Report [facility] VisitID: [id number] [address] [place] [address] 56y, F Registration Date/Time: 06/27/2016 Weight: 74.8 kg Height/Length: 65 in. BMI: 27.5 ALLERGIES: No Known Drug Allergy The patient's Home Medications are listed below: CONTINUE TAKING THE FOLLOWING MEDICATIONS: Amitriptyline HCl Oral Atenolol Baclofen External FLUoxetine HCl Oral Hydrochlo Hydrochlorothiazide Oral Naproxen Oral Tramadol The source(s) of the original Home Medication information: patient The following Medications were given to the patient in the Emergency Department: None. The following Medications were prescribed to the patient: Scopolamine patch : apply behind ear q 72 hours prn vertigo. # 6. -- Ankit Webber MD Oxycodone/APAP 5 mg/325 mg: take 1-2 tablets orally every 6 hours as needed for pain. Dispense ten (10). No refill. -- Ankit Webber MD Zithromax 250 mg tablets: take 2 orally today, followed by 1 daily for the next 4 days. No refills. Substitution is permissible. -- Ankit Webber MD
--- NOTE | 2016-06-30 09:59 | ED MAR SUMMARY ---
..... Medication Administration Record [facility] [address] [place] [id number] Patient: ROE RUTLEDGE Visit ID: [id number] 56y, F Weight: 74.8 kg Height/Length: 65 in BMI: 27.5 ALLERGIES: No Known Drug Allergy
--- NOTE | 2016-06-30 09:59 | ED DISCHARGE INSTRUCTIONS ---
Patient: ROE RUTLEDGE General Instructions [facility] VisitID: [id number] [place] [address] 56y, F Registration Date/Time: 06/27/2016 Hydrocephalus with transient visual changes. Severe neck DJD ANTOINE due to the above. Acute benign positional vertigo Bilateral otitis media. INSTRUCTIONS Apply moist heat for 15-20 minutes three times a day for one weeks. Limit lifting. No strenuous activity. Rest. (Continue muscle relaxant. Decongestant of choice.). Warnings: GENERAL WARNINGS: Return or contact your physician immediately if your condition worsens or changes unexpectedly, if not improving as expected, or if other problems arise. Your Current Medications: CONTINUE TAKING THE FOLLOWING MEDICATIONS: Amitriptyline HCl Oral. Atenolol*. Baclofen External. FLUoxetine HCl Oral. Hydrochlo*. Hydrochlorothiazide Oral. Naproxen Oral. Tramadol*. Prescription Medications: Oxycodone/APAP 5 mg/325 mg: take 1-2 tablets orally every 6 hours as needed for pain. Dispense ten (10). No refill. Zithromax 250 mg tablets: take 2 orally today, followed by 1 daily for the next 4 days. No refills. Substitution is permissible. Scopolamine patch : apply behind ear q 72 hours prn vertigo. # 6. Follow-up: Follow up with your doctor in one week. Call for an appointment. Reason for referral: ear fluid and vertigo. Follow up with a neurologist. Call for the next available appointment. Reason for referral: hydrocephalus, vertigo, visual symptoms. Understanding of the discharge instructions verbalized by patient. Discharge instructions reviewed with and understanding was verbalized by water pollution specialist. ADDITIONAL INFORMATION Oxycodone Hydrochloride, Acetaminophen Oral tablet What is this medicine? ACETAMINOPHEN; OXYCODONE (a set a MICHELLE chang fen; ox i KOE done) is a pain reliever. It is used to treat mild to moderate pain. How should I use this medicine? Take this medicine by mouth with a full glass of water. Follow the directions on the prescription label. Take your medicine at regular intervals. Do not take your medicine more often than directed. Talk to your senior compensation analyst regarding the use of this medicine in children. Special care may be needed. Patients over 65 years old may have a stronger reaction and need a smaller dose. What side effects may I notice from receiving this medicine? Side effects that you should report to your doctor or health post acute care nurse as soon as possible: allergic reactions like skin rash, itching or hives, swelling of the face, lips, or tongue breathing difficulties, wheezing confusion light headedness or fainting spells severe stomach pain yellowing of the skin or the whites of the eyes Side effects that usually do not require medical attention (report to your doctor or health post acute care nurse if they continue or are bothersome): dizziness drowsiness nausea vomiting What may interact with this medicine? alcohol antihistamines barbiturates like amobarbital, butalbital, butabarbital, methohexital, pentobarbital, phenobarbital, thiopental, and secobarbital benztropine drugs for bladder problems like solifenacin, trospium, oxybutynin, tolterodine, hyoscyamine, and methscopolamine drugs for breathing problems like ipratropium and tiotropium drugs for certain stomach or intestine problems like propantheline, homatropine methylbromide, glycopyrrolate, atropine, belladonna, and dicyclomine general anesthetics like etomidate, ketamine, nitrous oxide, propofol, desflurane, enflurane, halothane, isoflurane, and sevoflurane medicines for depression, anxiety, or psychotic disturbances medicines for sleep muscle relaxants naltrexone narcotic medicines (opiates) for pain phenothiazines like perphenazine, thioridazine, chlorpromazine, mesoridazine, fluphenazine, prochlorperazine, promazine, and trifluoperazine scopolamine tramadol trihexyphenidyl What if I miss a dose? If you miss a dose, take it as soon as you can. If it is almost time for your next dose, take only that dose. Do not take double or extra doses. Where should I keep my medicine? Keep out of the reach of children. This medicine can be abused. Keep your medicine in a safe place to protect it from theft. Do not share this medicine with anyone. Selling or giving away this medicine is dangerous and against the law. Store at room temperature between 20 and 25 degrees C (68 and 77 degrees F). Keep container tightly closed. Protect from light. This medicine may cause accidental overdose and if it is taken by other adults, children, or pets. Flush any unused medicine down the toilet to reduce the chance of harm. Do not use the medicine after the expiration date. What should I tell my health care provider before I take this medicine? They need to know if you have any of these conditions: brain tumor Crohn's disease, inflammatory bowel disease, or ulcerative colitis drink more than 3 alcohol containing drinks per day drug abuse or addiction head injury heart or circulation problems kidney disease or problems going to the bathroom liver disease lung disease, asthma, or breathing problems an unusual or allergic reaction to acetaminophen, oxycodone, other opioid analgesics, other medicines, foods, dyes, or preservatives or trying to get breast-feeding What should I watch for while using this medicine? Tell your doctor or health post acute care nurse if your pain does not go away, if it gets worse, or if you have new or a different type of pain. You may develop tolerance to the medicine. Tolerance means that you will need a higher dose of the medication for pain relief. Tolerance is normal and is expected if you take this medicine for a long time. Do not suddenly stop taking your medicine because you may develop a severe reaction. Your body becomes used to the medicine. This does NOT mean you are addicted. Addiction is a behavior related to getting and using a drug for a non-medical reason. If you have pain, you have a medical reason to take pain medicine. Your doctor will tell you how much medicine to take. If your doctor wants you to stop the medicine, the dose will be slowly lowered over time to avoid any side effects. You may get drowsy or dizzy. Do not drive, use machinery, or do anything that needs mental alertness until you know how this medicine affects you. Do not stand or sit up quickly, especially if you are an older patient. This reduces the risk of dizzy or fainting spells. Alcohol may interfere with the effect of this medicine. Avoid alcoholic drinks. There are different types of narcotic medicines (opiates) for pain. If you take more than one type at the same time, you may have more side effects. Give your health care provider a list of all medicines you use. Your doctor will tell you how much medicine to take. Do not take more medicine than directed. Call emergency for help if you have problems breathing. The medicine will cause constipation. Try to have a bowel movement at least every 2 to 3 days. If you do not have a bowel movement for 3 days, call your doctor or health post acute care nurse. Do not take Tylenol (acetaminophen) or medicines that have acetaminophen with this medicine. Too much acetaminophen can be very dangerous. Many nonprescription medicines contain acetaminophen. Always read the labels carefully to avoid taking more acetaminophen. You have been given the following additional information: Oxycodone Hydrochloride, Acetaminophen Oral tablet Limit lifting. No strenuous activity. Rest. (Electronically signed by Ankit Webber MD 06/30/2016 9:59)
--- NOTE | 2016-06-30 09:59 | ED MAR SUMMARY ---
..... Medication Administration Record [facility] [address], [place] [id number] Patient: ROE RUTLEDGE Visit ID: [id number] 56y, F Weight: 74.8 kg Height/Length: 65 in BMI: 27.5 ALLERGIES: No Known Drug Allergy
--- NOTE | 2016-06-30 09:59 | ED MED RECONCILIATION SUMMARY ---
Patient: ROE RUTLEDGE Medication Reconciliation Report [facility] VisitID: [id number] [address] [place] [address] 56y, F Registration Date/Time: 06/27/2016 Weight: 74.8 kg Height/Length: 65 in. BMI: 27.5 ALLERGIES: No Known Drug Allergy The patient's Home Medications are listed below: CONTINUE TAKING THE FOLLOWING MEDICATIONS: Amitriptyline HCl Oral Atenolol Baclofen External FLUoxetine HCl Oral Hydrochlo Hydrochlorothiazide Oral Naproxen Oral Tramadol The source(s) of the original Home Medication information: patient The following Medications were given to the patient in the Emergency Department: None. The following Medications were prescribed to the patient: Scopolamine patch : apply behind ear q 72 hours prn vertigo. # 6. -- Ankit Webber MD Oxycodone/APAP 5 mg/325 mg: take 1-2 tablets orally every 6 hours as needed for pain. Dispense ten (10). No refill. -- Ankit Webber MD Zithromax 250 mg tablets: take 2 orally today, followed by 1 daily for the next 4 days. No refills. Substitution is permissible. -- Ankit Webber MD
--- NOTE | 2016-06-30 09:59 | ED DISCHARGE INSTRUCTIONS ---
Patient: ROE RUTLEDGE General Instructions [facility] VisitID: [id number] [place] [address] 56y, F Registration Date/Time: 06/27/2016 Hydrocephalus with transient visual changes. Severe neck DJD ANTOINE due to the above. Acute benign positional vertigo Bilateral otitis media. INSTRUCTIONS Apply moist heat for 15-20 minutes three times a day for one weeks. Limit lifting. No strenuous activity. Rest. (Continue muscle relaxant. Decongestant of choice.). Warnings: GENERAL WARNINGS: Return or contact your physician immediately if your condition worsens or changes unexpectedly, if not improving as expected, or if other problems arise. Your Current Medications: CONTINUE TAKING THE FOLLOWING MEDICATIONS: Amitriptyline HCl Oral. Atenolol*. Baclofen External. FLUoxetine HCl Oral. Hydrochlo*. Hydrochlorothiazide Oral. Naproxen Oral. Tramadol*. Prescription Medications: Oxycodone/APAP 5 mg/325 mg: take 1-2 tablets orally every 6 hours as needed for pain. Dispense ten (10). No refill. Zithromax 250 mg tablets: take 2 orally today, followed by 1 daily for the next 4 days. No refills. Substitution is permissible. Scopolamine patch : apply behind ear q 72 hours prn vertigo. # 6. Follow-up: Follow up with your doctor in one week. Call for an appointment. Reason for referral: ear fluid and vertigo. Follow up with a neurologist. Call for the next available appointment. Reason for referral: hydrocephalus, vertigo, visual symptoms. Understanding of the discharge instructions verbalized by patient. Discharge instructions reviewed with and understanding was verbalized by refrigeration repair supervisor. ADDITIONAL INFORMATION Oxycodone Hydrochloride, Acetaminophen Oral tablet What is this medicine? ACETAMINOPHEN; OXYCODONE (a set a MICHELLE chang fen; ox i KOE done) is a pain reliever. It is used to treat mild to moderate pain. How should I use this medicine? Take this medicine by mouth with a full glass of water. Follow the directions on the prescription label. Take your medicine at regular intervals. Do not take your medicine more often than directed. Talk to your sales representative graphic art regarding the use of this medicine in children. Special care may be needed. Patients over 65 years old may have a stronger reaction and need a smaller dose. What side effects may I notice from receiving this medicine? Side effects that you should report to your doctor or health residential care officer as soon as possible: allergic reactions like skin rash, itching or hives, swelling of the face, lips, or tongue breathing difficulties, wheezing confusion light headedness or fainting spells severe stomach pain yellowing of the skin or the whites of the eyes Side effects that usually do not require medical attention (report to your doctor or health residential care officer if they continue or are bothersome): dizziness drowsiness nausea vomiting What may interact with this medicine? alcohol antihistamines barbiturates like amobarbital, butalbital, butabarbital, methohexital, pentobarbital, phenobarbital, thiopental, and secobarbital benztropine drugs for bladder problems like solifenacin, trospium, oxybutynin, tolterodine, hyoscyamine, and methscopolamine drugs for breathing problems like ipratropium and tiotropium drugs for certain stomach or intestine problems like propantheline, homatropine methylbromide, glycopyrrolate, atropine, belladonna, and dicyclomine general anesthetics like etomidate, ketamine, nitrous oxide, propofol, desflurane, enflurane, halothane, isoflurane, and sevoflurane medicines for depression, anxiety, or psychotic disturbances medicines for sleep muscle relaxants naltrexone narcotic medicines (opiates) for pain phenothiazines like perphenazine, thioridazine, chlorpromazine, mesoridazine, fluphenazine, prochlorperazine, promazine, and trifluoperazine scopolamine tramadol trihexyphenidyl What if I miss a dose? If you miss a dose, take it as soon as you can. If it is almost time for your next dose, take only that dose. Do not take double or extra doses. Where should I keep my medicine? Keep out of the reach of children. This medicine can be abused. Keep your medicine in a safe place to protect it from theft. Do not share this medicine with anyone. Selling or giving away this medicine is dangerous and against the law. Store at room temperature between 20 and 25 degrees C (68 and 77 degrees F). Keep container tightly closed. Protect from light. This medicine may cause accidental overdose and if it is taken by other adults, children, or pets. Flush any unused medicine down the toilet to reduce the chance of harm. Do not use the medicine after the expiration date. What should I tell my health care provider before I take this medicine? They need to know if you have any of these conditions: brain tumor Crohn's disease, inflammatory bowel disease, or ulcerative colitis drink more than 3 alcohol containing drinks per day drug abuse or addiction head injury heart or circulation problems kidney disease or problems going to the bathroom liver disease lung disease, asthma, or breathing problems an unusual or allergic reaction to acetaminophen, oxycodone, other opioid analgesics, other medicines, foods, dyes, or preservatives or trying to get breast-feeding What should I watch for while using this medicine? Tell your doctor or health residential care officer if your pain does not go away, if it gets worse, or if you have new or a different type of pain. You may develop tolerance to the medicine. Tolerance means that you will need a higher dose of the medication for pain relief. Tolerance is normal and is expected if you take this medicine for a long time. Do not suddenly stop taking your medicine because you may develop a severe reaction. Your body becomes used to the medicine. This does NOT mean you are addicted. Addiction is a behavior related to getting and using a drug for a non-medical reason. If you have pain, you have a medical reason to take pain medicine. Your doctor will tell you how much medicine to take. If your doctor wants you to stop the medicine, the dose will be slowly lowered over time to avoid any side effects. You may get drowsy or dizzy. Do not drive, use machinery, or do anything that needs mental alertness until you know how this medicine affects you. Do not stand or sit up quickly, especially if you are an older patient. This reduces the risk of dizzy or fainting spells. Alcohol may interfere with the effect of this medicine. Avoid alcoholic drinks. There are different types of narcotic medicines (opiates) for pain. If you take more than one type at the same time, you may have more side effects. Give your health care provider a list of all medicines you use. Your doctor will tell you how much medicine to take. Do not take more medicine than directed. Call emergency for help if you have problems breathing. The medicine will cause constipation. Try to have a bowel movement at least every 2 to 3 days. If you do not have a bowel movement for 3 days, call your doctor or health residential care officer. Do not take Tylenol (acetaminophen) or medicines that have acetaminophen with this medicine. Too much acetaminophen can be very dangerous. Many nonprescription medicines contain acetaminophen. Always read the labels carefully to avoid taking more acetaminophen. You have been given the following additional information: Oxycodone Hydrochloride, Acetaminophen Oral tablet Limit lifting. No strenuous activity. Rest. (Electronically signed by Ankit Webber MD 06/30/2016 9:59)
== END 2016-06-28 02:00 | disposition home or self-care (01) ==
LOC: ED SRH 23:28
DX: H53.8 Other visual disturbances (principal); G91.9 Hydrocephalus, unspecified; M47.9 Spondylosis, unspecified; H81.10 Benign paroxysmal vertigo, unspecified ear; H66.93 Otitis media, unspecified, bilateral; R51 Headache; Z79.899 Other long term (current) drug therapy

== ENCOUNTER 2016-07-31 19:34 | Emergency (ER) | payer OTHER ==
--- NOTE | 2016-07-31 22:16 | DIAGNOSTIC IMAGING REPORT ---
PROCEDURE: CT HEAD WITHOUT CONTRAST INDICATION: Severe dizziness. History of hydrocephalous. TECHNIQUE: Noncontrast axial images with sagittal and coronal reformations. COMPARISON: Compared to a head CT on 06/28/2016. FINDINGS: Moderate to severe chronic hydrocephalus with chronic atrophic changes. Brain and ventricles are otherwise normal. No evidence of an acute process or hemorrhage. Sinuses and mastoids are normal. IMPRESSION: 1. Moderate to severe chronic hydrocephalous. 2. Otherwise negative head CT. No change. No evidence of acute process. 3. Findings discussed with Dr. Antonio Padilla at [address] scans at this facility use dose modulation, iterative reconstruction, and/or weight-based dosing when appropriate to reduce radiation dose to as low as reasonably achievable.
--- NOTE | 2016-08-01 00:17 | ED ORDER SUMMARY ---
..... Patient: ROE RUTLEDGE OrderSheet [facility] VisitID: [id number] [place] [address] 56y, F Registration Date/Time: 07/31/2016 ORDER SHEET Weight: 74.8 kg (stated) Allergies: No Known Drug Allergy GENERAL ORDERS: CT Head wo Cont Urgent (21:32 07/31/2016 Maximiliano De Leon) (Ack 21:33 Amy ER Sheet Metal Assembler) (21:58 JQuivey R.N.) CBC w Diff Urgent (21:32 07/31/2016 Maximiliano De Leon) (Ack 21:33 Amy ER Sheet Metal Assembler) (22:05 Amy ER Sheet Metal Assembler) CMP Urgent (21:32 07/31/2016 Maximiliano De Leon) (Ack 21:33 Amy ER Sheet Metal Assembler) (22:05 Joanerty ER Sheet Metal Assembler) UA-Culture if indicated Urgent (21:32 07/31/2016 Maximiliano De Leon) (Ack 21:33 Amy ER Sheet Metal Assembler) (21:58 JQuivey R.N.) MEDICATION ORDERS: Scopolamine Topical 1 patch (NOW) (23:13 07/31/2016 Maximiliano De Leon) (Ack 23:19 JQuivey R.N.) (23:23 JQuivey R.N.) IV FLUIDS: IV NS : initial bolus none -, then 1000 mL/hr for X1 (NOW) (21:31 07/31/2016 Maximiliano De Leon) (Ack 21:33 JQuivey R.N.) (22:00 JQuivey R.N.) Zofran IV 4 mg (NOW) (21:32 07/31/2016 Maximiliano De Leon) (Ack 21:33 LuanaQuivey R.N.) (22:01 JQuivey R.N.) ORDER SHEET NOTES: [Electronically signed by Mohan Falk R.N. (00:26 08/01/2016)] [Electronically signed by Antonio Padilla Dr. (00:56 08/01/2016)] [Electronically locked/signed by Mohan Falk R.N. (00:26 08/01/2016)]
--- NOTE | 2016-08-01 00:17 | ED NURSING NOTES ---
Clinical Report - Nurses [facility] [address] [place] [place] [address] 07/31/2016 19:34 Patient: ROE RUTLEDGE TRIAGE Triage time 19:52. Acuity: LEVEL 3. Chief Complaint: NAUSEA (Dizziness). 20:00. Alert. SEPSIS SCREEN: Sepsis Screen. Negative (no infection suspected/documented). PIOTR COMA SCORE: [place] Coma Scale: 15- eyes open spontaneously (4); best verbal response- oriented x 4 (5); best motor response- obeys commands (6). --20:00 Mohan Falk R.N. 19:52 07/31/16. BP: 142/89. HR: 69. RR: 16. O2 saturation: 100%. Temp: 98.5 F (oral). Pain level now: 0/10. --20:00 Mohan Falk R.N. Weight: 74.8 kg stated. Height/Length: 65 inches Per Patient. BMI: 27.5. --19:59 Mohan Falk R.N. Medications Amitriptyline HCl Oral 10 mg, daily. Atenolol (pt unsure of dose ). FLUoxetine HCl Oral 40 mg, 2x a day. Hydrochlorothiazide Oral 25 mg, daily. Naproxen Oral. Tramadol 50mg, 4x a day. --19:55 Mohan Falk R.N. Baclofen 10mg , 1-2 x daily PRN. --19:56 Mohan Falk R.N. Oxycodone-Acetaminophen Oral 5/325 mg, 4x a day. --19:57 Mohan Falk R.N. Medication/allergy information source: the patient. --20:00 Mohan Falk R.N. Allergies No Known Drug Allergy. --19:55 Mohan Falk R.N. History Arrived by private vehicle. Historian: patient. Accompanied by spouse. Primary physician (Therese). This is a recurrent problem. (Started 2-3 weeks ago). ( Patient reports being here 2-3 weeks ago, is having ongoing Dizziness with nausea, has an appt. with [facility] on the 08/22). PAST MEDICAL HX: Immunizations: up-to-date. The patient is post-menopausal. SOCIAL HX: Never smoker. Occasional alcohol use. No drug use. No infectious disease exposure. ABUSE ASSESSMENT: No report of abuse. FALL RISK ASSESSMENT: Fall risk assessment completed. No fall risk identified. NUTRITIONAL RISK ASSESSMENT: The nutritional risk assessment revealed no deficiencies. FUNCTIONAL ASSESSMENT: Functional assessment: no impairments noted. LEARNING NEEDS ASSESSMENT: The learning needs assessment revealed no barriers. SKIN INTEGRITY ASSESSMENT: Skin integrity risk assessment completed. No skin integrity risk identified. --20:00 Mohan Falk R.N. PROBLEMS: Migraine Headache. Chronic Headache. Back Pain. Scoliosis. Degenerative Joint Disease. Hypertension. --19:58 Mohan Falk R.N. ADDITIONAL SURGERIES: Knee Surgery. Tonsillectomy. Tubal Ligation. --19:58 Mohan Falk R.N. Interventions ID band on patient. To treatment room. --20:00 Mohan Falk R.N. PHYSICAL ASSESSMENT 20:00. Ambulatory to room. GENERAL / NEURO / PSYCH: Alert. Oriented X 4. HEENT: No facial asymmetry noted. Mucous membranes are pink. RESPIRATORY: Respirations not labored. SKIN: Skin intact. Skin is warm and dry. Normal skin turgor. --20:00 Mohan Falk R.N. NURSING PROGRESS NOTES 20:00. Head of bed elevated. Two patient identifiers checked. Call light placed in reach. Bed placed in lowest position. Brakes of bed on. Patient ready for evaluation- chart flagged. --20:00 Mohan Falk R.N. 21:35. Patient ID band checked for patient name and birthdate: patient confirmed. Clean catch urine collected with return of jake-colored clear urine; sample sent to lab for urinalysis. Specimen labeled in the presence of the patient. --21:41 Mohan Falk R.N. 21:39. [facility] tech. --21:41 Mohan Falk R.N. 21:54 07/31/2016 Site #1 started via IV in the left forearm with an 20g angiocath, with aseptic technique and good blood return; one attempt. Saline lock flushed with 10 mL saline (Unable to draw blood). --21:58 Mohan Falk R.N. 21:56 07/31/2016 Started bag #1 1000 mL IV Fluids IV NS (Saline); at 1000 mL/hr over 1 hour(s) via site #1 --22:00 Mohan Falk R.N. 22:00 07/31/2016 Zofran (Ondansetron HCl) IVP 4 mg given over 2 minute(s) via site #1. Allergies verified and confirmed 5 rights. IV patency established. IV site checked: no pain, redness, or swelling. IV flushed thoroughly pre- and post-medication administration. --22:01 Mohan Falk R.N. 21:44. Patient returned from CT by wheelchair with tech. --22:02 Mohan Falk R.N. 22:02 technology applications consultant with pt for blood draw. --22:02 Mohan Falk R.N. 23:05 07/31/2016 IV Fluids IV NS Discontinued: bag #1 infused. Total amount infused: 1000 mL. IV patency established. IV site checked: no pain, redness, or swelling. IV flushed thoroughly. --23:09 Mohan Falk R.N. 23:08 07/31/16. BP: 126/83. HR: 63. RR: 16. O2 saturation: 97%. --23:09 Mohan Falk R.N. The patient is calm and resting quietly. RESPIRATORY: No respiratory distress. SKIN: Skin is warm and dry. Skin color within normal limits. --23:09 Mohan Falk R.N. 23:23 07/31/2016 SCOPOLAMINE Topical 1 patch. (Applied behind left ear). --23:23 Mohan Falk R.N. 00:23. The patient is calm and resting quietly. RESPIRATORY: No respiratory distress. SKIN: Skin is warm and dry. Skin color within normal limits. --00:26 Mohan Falk R.N. DISPOSITION / DISCHARGE Departure time: 00:25. Condition at departure: stable. No learning barriers present. Discharge instructions provided and reviewed with the patient. Reviewed medication(s) side effects, precautions, dosing and course information. Prescription(s) given to the patient. Patient verbalized understanding. Written instructions provided in Syriac. The patient was discharged home and accompanied by spouse. She left the Emergency Department ambulatory and via private vehicle. Spouse driving. FALL RISK ASSESSMENT: Fall risk assessment completed. No fall risk identified. --00:26 Mohan Falk R.N. 23:23 07/31/16. BP: 127/74. HR: 65. RR: 16. O2 saturation: 98% on room air. Temp: 98.4 F (oral). Pain level now: 0/10. --00:26 Mohan Falk R.N. Locked/Released at 08/01/2016 0:26 by Mohan Falk R.N.
--- NOTE | 2016-08-01 00:17 | ED CLINICAL REPORT ---
Clinical Report - Physicians/Mid Levels [facility] [address] [place] [address] 07/31/2016 19:34 Patient: ROE RUTLEDGE Time Seen: 21:08; initial patient contact. Arrived- By private vehicle. Historian- patient. HISTORY OF PRESENT ILLNESS Chief Complaint: DIZZINESS. This started about 3 weeks ago and is still present and worsening. It was gradual in onset and has been constant. Described as a sense of rotation. Not described as a sense of movement, falling or confusion. Not described as feeling light-headed, faint or weak all over. Severity described as moderate at its maximum. When seen in the E.D., severity described as moderate. Modifying factors- worsened by turning head and changing position. Relieved by rest and not moving. The patient has had nausea and vomiting. No hearing loss. Similar symptoms previously: Many times. Recent medical care: The patient was seen recently at this facility in the emergency department. Seen for similar symptoms. Evaluation/treatment: CT scan, labs and medication prescribed. ( Hydrocephalus). REVIEW OF SYSTEMS No headache, fainting episodes, head injury, fever or diarrhea. No double vision. She has had difficulty walking. All systems otherwise negative, except as recorded above. PAST HISTORY ( Migraine Headache. Chronic Headache. Back Pain. Scoliosis. Degenerative Joint Disease. Hypertension. ADDITIONAL SURGERIES: Knee Surgery. Tonsillectomy. Tubal Ligation.). SOCIAL HISTORY Never smoker. No alcohol use or drug use. ADDITIONAL NOTES The nursing notes have been reviewed. PHYSICAL EXAM Vital Signs: 07/31/2016 19:52 BP: 142/89. HR: 69. RR: 16. O2 saturation: 100%. Temp: 98.5 F. Pain level now: 0/10. Have been reviewed. Hypertensive. Heart rate normal. Respiratory rate normal. Temperature normal. Oxygen saturation normal. Appearance: Alert. No acute distress. Eyes: Pupils equal, round and reactive to light. No nystagmus. Extraocular movements normal. ENT: Dry mucous membranes present. Neck: Normal inspection. Neck supple. CVS: Normal heart rate and rhythm. Heart sounds normal. Respiratory: No respiratory distress. Breath sounds normal. Skin: Skin warm and dry. Normal skin color. No rash. Neuro: Alert. Oriented X 3. Mood/affect normal. Speech normal. Cranial nerves normal (as tested). No cerebellar findings. No motor deficit. Sensory deficit present. Altered sensation to light touch on the right face. Reflexes normal. LABS, X-RAYS, AND EKG CT Head: (1. Moderate to severe chronic hydrocephalous. 2. Otherwise negative head CT. No change. No evidence of acute process.). Head CT performed without contrast. A comparison with prior studies reveals that the findings are unchanged. The study was interpreted by the radiologist and discussed with the radiologist. Interpretation time: 2009. Laboratory Tests: UA-Culture if indicated: (OSWALDO: 07/31/2016 21:35) ( MsgRcvd 07/31/2016 21:53) Final results Test Result Flag Units (Reference) URINE COLOR YELLOW URINE APPEARANCE CLEAR URINE GLUCOSE NEGATIVE (NEGATIVE) URINE BILIRUBIN 1+ (NEGATIVE) URINE KETONE NEGATIVE (NEGATIVE) URINE SPECIFIC GRAVITY >= 1.030 (1.010-1.030) URINE PH 5.5 (5.0-8.0) URINE PROTEIN NEGATIVE (NEGATIVE) URINE UROBILINOGEN 1.0 EU/dL (0.2-1.0) URINE NITRITE NEGATIVE (NEGATIVE) URINE BLOOD NEGATIVE (NEGATIVE) URINE LEUK ESTERASE NEGATIVE (NEGATIVE) URINE RBC 0-1 rbc/hpf (0-1) URINE WBC 0-1 wbc/hpf (0-1) URINE EPITHELIAL CELLS 1-3 EPI/hpf (0-5) URINE BACTERIA FEW (1+) (NONE SEEN) URINE COMMENT CULT NOT INDICATED URINE CULTURES ARE SET-UP BASED ON THE FOLLOWING CRITERIA:POSITIVE NITRITEPOSITIVE LEUKOCYTE ESTERASEGREATER THAN 10 WHITE BLOOD CELLSMODERATE (2+) OR GREATER BACTERIA CBC w Diff: (OSWALDO: 07/31/2016 22:03) ( MsgRcvd 07/31/2016 22:10) Final results Test Result Flag Units (Reference) WHITE BLOOD COUNT 6.8 K/uL (4.5-11.5) RED BLOOD COUNT 4.07 M/uL (4.00-5.20) HEMOGLOBIN 11.9 L gm/dL (12.0-16.0) HEMATOCRIT 35.5 L % (36.0-46.0) MEAN CELL VOLUME 87 fL (80-100) MEAN CORPUSCULAR HGB 29 pg (26-34) MEAN CORPUSCULAR HGB CONC 34 g/dL (31-37) RED CELL DISTRIBUTION WIDTH 14.5 % (11.6-14.8) PLATELET COUNT 322 K/uL (150-400) NEUTROPHIL % 64.4 % (50-75) LYMPH % 24.8 L % (25-40) MONO % 8.6 % (3-14) EOSINOPHIL % 1.7 % (0-4) BASOPHIL % 0.5 % (0-2) CMP: (OSWALDO: 07/31/2016 22:03) ( MsgRcvd 07/31/2016 22:22) Final results Test Result Flag Units (Reference) GLUCOSE 106 mg/dL (70-110) BUN 22 H mg/dL (7-18) CREATININE 1.3 mg/dL (0.6-1.3) Estimated GFR 45.37 mL/min Estimated GFR- 54.99 mL/min Note: Persistent reduction over 3 months in eGFR<60 mL/min/1.73 m2 defines CKD. Patients with eGFR values>=60 mL/min/1.73 m2 may also have CKD if evidence ofpersistent proteinuria. Additional information may be foundat www.kidney.org. SODIUM 142 mmol/L (136-145) POTASSIUM 4.2 mmol/L (3.5-5.1) CHLORIDE 107 mmol/L (98-107) CARBON DIOXIDE 27 mmol/L (21-32) CALCIUM 8.5 mg/dL (8.5-10.1) TOTAL PROTEIN 7.7 g/dL (6.4-8.2) ALBUMIN 3.8 g/dL (3.3-5.0) BILIRUBIN, TOTAL 0.3 mg/dL (0.0-1.0) ALKALINE PHOSPHATASE 108 U/L (46-116) AST (SGOT) 26 U/L (15-37) ALT (SGPT) 28 U/L (12-78) . PROGRESS AND PROCEDURES Consult obtained from neurosurgery. call returned 23:00 Dr. Raj Bacon at [facility]. No need for immediate surgical intervention. Have pt call his ofc in the AM for an appt. Case discussed. Phone consult only. Disposition: Discharged home in good and improved condition. Condition: good. CLINICAL IMPRESSION Congenital hydrocephalus. Chronic dizziness INSTRUCTIONS Your Current Medications: CONTINUE TAKING THE FOLLOWING MEDICATIONS: Amitriptyline HCl Oral : 10 mg daily. Atenolol* : pt unsure of dose. Baclofen* : 10mg 1-2 x daily PRN. FLUoxetine HCl Oral : 40 mg 2x a day. Hydrochlorothiazide Oral : 25 mg daily. Naproxen Oral. Oxycodone-Acetaminophen Oral : 5/325 mg 4x a day. Tramadol* : 50mg 4x a day. Prescription Medications: Zofran ODT 4 mg: take 1 orally every 6 hours as needed for nausea and vomiting. Dispense ten (10). No refill. Substitution is permissible. Transderm Scopolamine patch Attach 1 patch q 72 hours PRN N/V Disp #6 No refills Substitution allowed. Follow-up: Follow up with doctor Dr. Raj Bacon [phone] in about two days. Call for an appointment. (Electronically signed by Antonio Padilla Dr. 08/01/2016 0:56)
--- NOTE | 2016-08-01 00:17 | ED NURSING NOTES ---
Clinical Report - Nurses [facility] [address] [place] [address] 07/31/2016 19:34 Patient: ROE RUTLEDGE TRIAGE Triage time 19:52. Acuity: LEVEL 3. Chief Complaint: NAUSEA (Dizziness). 20:00. Alert. SEPSIS SCREEN: Sepsis Screen. Negative (no infection suspected/documented). PIOTR COMA SCORE: [place] Coma Scale: 15- eyes open spontaneously (4); best verbal response- oriented x 4 (5); best motor response- obeys commands (6). --20:00 Mohan Falk R.N. 19:52 07/31/16. BP: 142/89. HR: 69. RR: 16. O2 saturation: 100%. Temp: 98.5 F (oral). Pain level now: 0/10. --20:00 Mohan Falk R.N. Weight: 74.8 kg stated. Height/Length: 65 inches Per Patient. BMI: 27.5. --19:59 Mohan Falk R.N. Medications Amitriptyline HCl Oral 10 mg, daily. Atenolol (pt unsure of dose ). FLUoxetine HCl Oral 40 mg, 2x a day. Hydrochlorothiazide Oral 25 mg, daily. Naproxen Oral. Tramadol 50mg, 4x a day. --19:55 Mohan Falk R.N. Baclofen 10mg , 1-2 x daily PRN. --19:56 Mohan Falk R.N. Oxycodone-Acetaminophen Oral 5/325 mg, 4x a day. --19:57 Mohan Falk R.N. Medication/allergy information source: the patient. --20:00 Mohan Falk R.N. Allergies No Known Drug Allergy. --19:55 Mohan Falk R.N. History Arrived by private vehicle. Historian: patient. Accompanied by spouse. Primary physician (Therese). This is a recurrent problem. (Started 2-3 weeks ago). ( Patient reports being here 2-3 weeks ago, is having ongoing Dizziness with nausea, has an appt. with [facility] on [facility] 08/22). PAST MEDICAL HX: Immunizations: up-to-date. The patient is post-menopausal. SOCIAL HX: Never smoker. Occasional alcohol use. No drug use. No infectious disease exposure. ABUSE ASSESSMENT: No report of abuse. FALL RISK ASSESSMENT: Fall risk assessment completed. No fall risk identified. NUTRITIONAL RISK ASSESSMENT: The nutritional risk assessment revealed no deficiencies. FUNCTIONAL ASSESSMENT: Functional assessment: no impairments noted. LEARNING NEEDS ASSESSMENT: The learning needs assessment revealed no barriers. SKIN INTEGRITY ASSESSMENT: Skin integrity risk assessment completed. No skin integrity risk identified. --20:00 Mohan Falk R.N. PROBLEMS: Migraine Headache. Chronic Headache. Back Pain. Scoliosis. Degenerative Joint Disease. Hypertension. --19:58 Mohan Falk R.N. ADDITIONAL SURGERIES: Knee Surgery. Tonsillectomy. Tubal Ligation. --19:58 Mohan Falk R.N. Interventions ID band on patient. To treatment room. --20:00 Mohan Falk R.N. PHYSICAL ASSESSMENT 20:00. Ambulatory to room. GENERAL / NEURO / PSYCH: Alert. Oriented X 4. HEENT: No facial asymmetry noted. Mucous membranes are pink. RESPIRATORY: Respirations not labored. SKIN: Skin intact. Skin is warm and dry. Normal skin turgor. --20:00 Mohan Falk R.N. NURSING PROGRESS NOTES 20:00. Head of bed elevated. Two patient identifiers checked. Call light placed in reach. Bed placed in lowest position. Brakes of bed on. Patient ready for evaluation- chart flagged. --20:00 Mohan Falk R.N. 21:35. Patient ID band checked for patient name and birthdate: patient confirmed. Clean catch urine collected with return of jake-colored clear urine; sample sent to lab for urinalysis. Specimen labeled in the presence of the patient. --21:41 Mohan Falk R.N. 21:39. Patient transported to [place] by wheelchair with tech. --21:41 Mohan Falk R.N. 21:54 07/31/2016 Site #1 started via IV in the left forearm with an 20g angiocath, with aseptic technique and good blood return; one attempt. Saline lock flushed with 10 mL saline (Unable to draw blood). --21:58 Mohan Falk R.N. 21:56 07/31/2016 Started bag #1 1000 mL IV Fluids IV NS (Saline); at 1000 mL/hr over 1 hour(s) via site #1 --22:00 Mohan Falk R.N. 22:00 07/31/2016 Zofran (Ondansetron HCl) IVP 4 mg given over 2 minute(s) via site #1. Allergies verified and confirmed 5 rights. IV patency established. IV site checked: no pain, redness, or swelling. IV flushed thoroughly pre- and post-medication administration. --22:01 Mohan Falk R.N. 21:44. Patient returned from CT by wheelchair with tech. --22:02 Mohan Falk R.N. 22:02 earth moving technician with pt for blood draw. --22:02 Mohan Falk R.N. 23:05 07/31/2016 IV Fluids IV NS Discontinued: bag #1 infused. Total amount infused: 1000 mL. IV patency established. IV site checked: no pain, redness, or swelling. IV flushed thoroughly. --23:09 Mohan Falk R.N. 23:08 07/31/16. BP: 126/83. HR: 63. RR: 16. O2 saturation: 97%. --23:09 Mohan Falk R.N. The patient is calm and resting quietly. RESPIRATORY: No respiratory distress. SKIN: Skin is warm and dry. Skin color within normal limits. --23:09 Mohan Falk R.N. 23:23 07/31/2016 SCOPOLAMINE Topical 1 patch. (Applied behind left ear). --23:23 Mohan Falk R.N. 00:23. The patient is calm and resting quietly. RESPIRATORY: No respiratory distress. SKIN: Skin is warm and dry. Skin color within normal limits. --00:26 Mohan Falk R.N. DISPOSITION / DISCHARGE Departure time: 00:25. Condition at departure: stable. No learning barriers present. Discharge instructions provided and reviewed with the patient. Reviewed medication(s) side effects, precautions, dosing and course information. Prescription(s) given to the patient. Patient verbalized understanding. Written instructions provided in Tajik. The patient was discharged home and accompanied by spouse. She left the Emergency Department ambulatory and via private vehicle. Spouse driving. FALL RISK ASSESSMENT: Fall risk assessment completed. No fall risk identified. --00:26 Mohan Falk R.N. 23:23 07/31/16. BP: 127/74. HR: 65. RR: 16. O2 saturation: 98% on room air. Temp: 98.4 F (oral). Pain level now: 0/10. --00:26 Mohan Falk R.N. Locked/Released at 08/01/2016 0:26 by Mohan Falk R.N.
--- NOTE | 2016-08-01 00:17 | ED ORDER SUMMARY ---
..... Patient: ROE RUTLEDGE OrderSheet [facility] VisitID: [id number] [place] [address] 56y, F Registration Date/Time: 07/31/2016 ORDER SHEET Weight: 74.8 kg (stated) Allergies: No Known Drug Allergy GENERAL ORDERS: CT Head wo Cont Urgent (21:32 07/31/2016 Maximiliano De Leon) (Ack 21:33 Amy ER Cage Loader) (21:58 JQuivey R.N.) CBC w Diff Urgent (21:32 07/31/2016 Maxiimliano De Leon) (Ack 21:33 Amy ER Cage Loader) (22:05 Amy ER Cage Loader) CMP Urgent (21:32 07/31/2016 Maximiliano De Leon) (Ack 21:33 Amy ER Cage Loader) (22:05 Joanerty ER Cage Loader) UA-Culture if indicated Urgent (21:32 07/31/2016 Maximiliano De Leon) (Ack 21:33 Amy ER Cage Loader) (21:58 JQuivey R.N.) MEDICATION ORDERS: Scopolamine Topical 1 patch (NOW) (23:13 07/31/2016 Maximiliano De Leon) (Ack 23:19 JQuivey R.N.) (23:23 JQuivey R.N.) IV FLUIDS: IV NS : initial bolus none -, then 1000 mL/hr for X1 (NOW) (21:31 07/31/2016 Maximiliano De Leon) (Ack 21:33 JQuivey R.N.) (22:00 JQuivey R.N.) Zofran IV 4 mg (NOW) (21:32 07/31/2016 Maximiliano De Leon) (Ack 21:33 LuanaQuivey R.N.) (22:01 JQuivey R.N.) ORDER SHEET NOTES: [Electronically signed by Mohan Falk R.N. (00:26 08/01/2016)] [Electronically signed by Antonio Padilla Dr. (00:56 08/01/2016)] [Electronically locked/signed by Mohan Falk R.N. (00:26 08/01/2016)]
--- NOTE | 2016-08-01 00:57 | ED MED RECONCILIATION SUMMARY ---
Patient: ROE RUTLEDGE Medication Reconciliation Report [facility] VisitID: [id number] [address] [place] [address] 56y, F Registration Date/Time: 07/31/2016 Weight: 74.8 kg Height/Length: 65 in. BMI: 27.5 ALLERGIES: No Known Drug Allergy The patient's Home Medications are listed below: CONTINUE TAKING THE FOLLOWING MEDICATIONS: Amitriptyline HCl Oral 10 mg, daily Atenolol, pt unsure of dose Baclofen 10mg , 1-2 x daily PRN FLUoxetine HCl Oral 40 mg, 2x a day Hydrochlorothiazide Oral 25 mg, daily Naproxen Oral Oxycodone-Acetaminophen Oral 5/325 mg, 4x a day Tramadol 50mg, 4x a day The source(s) of the original Home Medication information: patient The following Medications were given to the patient in the Emergency Department: IV NS IV Fluids bolus 0, then 1000 mL/hr, administered: 07/31/2016 9:56:00 PM Zofran [IVP] IVP 4 mg, administered: 07/31/2016 10:00:00 PM SCOPOLAMINE [TOPICAL] Topical 1 patch, administered: 07/31/2016 11:23:00 PM The following Medications were prescribed to the patient: Transderm Scopolamine patchAttach 1 patch q 72 hours PRN N/VDisp #6No refillsSubstitution allowed. -- Antonio Padilla Dr. [place]sey ODT 4 mg: take 1 orally every 6 hours as needed for nausea and vomiting. Dispense ten (10). No refill. Substitution is permissible. -- Antonio Padilla Dr.
--- NOTE | 2016-08-01 00:57 | ED MAR SUMMARY ---
..... Medication Administration Record [facility] [address] [place] [address] Patient: ROE RUTLEDGE Visit ID: [id number] 56y, F Weight: 74.8 kg Height/Length: 65 in BMI: 27.5 ALLERGIES: No Known Drug Allergy Start 21:56 07/31/2016 Mohan Falk RTashN., Stop 23:05 07/31/2016 Mohan Falk R.N. Medication Administered: IV NS (SALINE), Dose: IV Fluids over 1 hour(s), Rate: 1000 mL/hr, Dispensed: 1000 mL bag, Site: #1 left forearm. Medication Ordered: IV NS : initial bolus none -, then 1000 mL/hr for X1 (NOW). Given 22:00 07/31/2016 Mohan Falk RTashNTash Medication Administered: ZOFRAN [IVP] (ONDANSETRON HCL), Dose: 4 mg IVP over 2 minute(s), Site: #1 left forearm. Medication Ordered: Zofran IV 4 mg (NOW). Given 23:23 07/31/2016 Mohan Falk RTashN. Medication Administered: SCOPOLAMINE [TOPICAL], Dose: 1 patch Topical. Medication Ordered: Scopolamine Topical 1 patch (NOW).
--- NOTE | 2016-08-01 00:57 | ED DISCHARGE INSTRUCTIONS ---
Patient: ROE RUTLEDGE General Instructions [facility] VisitID: [id number] [place] [address] 56y, F Registration Date/Time: 07/31/2016 Congenital hydrocephalus. Chronic dizziness INSTRUCTIONS Your Current Medications: CONTINUE TAKING THE FOLLOWING MEDICATIONS: Amitriptyline HCl Oral : 10 mg daily. Atenolol* : pt unsure of dose. Baclofen* : 10mg 1-2 x daily PRN. FLUoxetine HCl Oral : 40 mg 2x a day. Hydrochlorothiazide Oral : 25 mg daily. Naproxen Oral. Oxycodone-Acetaminophen Oral : 5/325 mg 4x a day. Tramadol* : 50mg 4x a day. Prescription Medications: Zofran ODT 4 mg: take 1 orally every 6 hours as needed for nausea and vomiting. Dispense ten (10). No refill. Substitution is permissible. Transderm Scopolamine patch Attach 1 patch q 72 hours PRN N/V Disp #6 No refills Substitution allowed. Follow-up: Follow up with doctor Dr. Raj Bacon [phone] in about two days. Call for an appointment. ADDITIONAL INFORMATION Vertigo [Unknown Cause] The "inner ear" is located behind the middle ear. It is part of the balance center of your body. Disease of the inner ear causes vertigo -- a false feeling of motion. It feels as if you or the room is spinning. A vertigo attack may cause sudden nausea, vomiting and heavy sweating. Severe vertigo causes a loss of balance and can cause you to fall. During vertigo, small head movements and changes in body position will often make the symptoms worse. The causes of vertigo include: Inflammation of the inner ear Disease of the nerves to the inner ear Movement of calcium particles in the inner ear Poor blood flow to the balance centers of the brain An episode of vertigo may last seconds, minutes or hours. Once you are over the first episode, it may never return. However, sometimes symptoms may recur off and on over several weeks or longer, depending on the cause. There may be ringing in the ears or hearing loss, which may be temporary or permanent. Home Care: If symptoms are severe, rest quietly in bed. Change positions very slowly. There is usually one position that will feel best, such as lying on one side or lying on your back with your head slightly raised on pillows. Do not drive or work with dangerous machinery for one week after symptoms go away, in case the symptoms suddenly return. Take medicine as prescribed to relieve your symptoms. Unless another medicine was prescribed for nausea, vomiting and vertigo, you may use cyfi-xnt-zombqak motion sickness pills, such as meclizine (Bonine, Bonamine, Antivert) or dimenhydrinate (Dramamine). Follow Up with your doctor or as directed by our staff. Tell the doctor if your ears keep ringing, or if your hearing does not return to normal. Get Prompt Medical Attention if any of the following occur: Vertigo gets worse and is not controlled by medicine prescribed Repeated vomiting not relieved by medicine prescribed Increased weakness or fainting Severe headache or unusually drowsy or confused Weakness of an arm or leg or one side of the face Difficulty with speech or vision Ondansetron Oral disintegrating tablet What is this medicine? ONDANSETRON (on GILDA se reza) is used to treat nausea and vomiting caused by chemotherapy. It is also used to prevent or treat nausea and vomiting after surgery. How should I use this medicine? These tablets are made to dissolve in the mouth. Do not try to push the tablet through the foil backing. With dry hands, peel away the foil backing and gently remove the tablet. Place the tablet in the mouth and allow it to dissolve, then swallow. While you may take these tablets with water, it is not necessary to do so. Talk to your beauty specialist regarding the use of this medicine in children. Special care may be needed. What side effects may I notice from receiving this medicine? Side effects that you should report to your doctor or health animal care technician as soon as possible: allergic reactions like skin rash, itching or hives, swelling of the face, lips, or tongue breathing problems dizziness fast or irregular heartbeat feeling faint or lightheaded, falls fever and chills swelling of the hands and feet tightness in the chest Side effects that usually do not require medical attention (report to your doctor or health animal care technician if they continue or are bothersome): constipation or diarrhea headache What may interact with this medicine? Do not take this medicine with any of the following medications: -apomorphine -cisapride -dofetilide -dronedarone -pimozide -thioridazine -ziprasidone This medicine may also interact with the following medications: -carbamazepine -phenytoin -rifampicin -tramadol -other medicines that prolong the QT interval (cause an abnormal heart rhythm) What if I miss a dose? If you miss a dose, take it as soon as you can. If it is almost time for your next dose, take only that dose. Do not take double or extra doses. Where should I keep my medicine? Keep out of the reach of children. Store between 2 and 30 degrees C (36 and 86 degrees F). Throw away any unused medicine after the expiration date. What should I tell my health care provider before I take this medicine? They need to know if you have any of these conditions: heart disease history of irregular heartbeat liver disease low levels of magnesium or potassium in the blood an unusual or allergic reaction to ondansetron, granisetron, other medicines, foods, dyes, or preservatives or trying to get breast-feeding What should I watch for while using this medicine? Check with your doctor or health animal care technician as soon as you can if you have any sign of an allergic reaction. You have been given the following additional information: Vertigo, Unspecified Ondansetron Oral disintegrating tablet (Electronically signed by Antonio Padilla Dr. 08/01/2016 0:56)
--- NOTE | 2016-08-01 00:57 | ED MED RECONCILIATION SUMMARY ---
Patient: ROE RUTLEDGE Medication Reconciliation Report [facility] VisitID: [id number] [place] [address] 56y, F Registration Date/Time: 07/31/2016 Weight: 74.8 kg Height/Length: 65 in. BMI: 27.5 ALLERGIES: No Known Drug Allergy The patient's Home Medications are listed below: CONTINUE TAKING THE FOLLOWING MEDICATIONS: Amitriptyline HCl Oral 10 mg, daily Atenolol, pt unsure of dose Baclofen 10mg , 1-2 x daily PRN FLUoxetine HCl Oral 40 mg, 2x a day Hydrochlorothiazide Oral 25 mg, daily Naproxen Oral Oxycodone-Acetaminophen Oral 5/325 mg, 4x a day Tramadol 50mg, 4x a day The source(s) of the original Home Medication information: patient The following Medications were given to the patient in the Emergency Department: IV NS IV Fluids bolus 0, then 1000 mL/hr, administered: 07/31/2016 9:56:00 PM Zofran [IVP] IVP 4 mg, administered: 07/31/2016 10:00:00 PM SCOPOLAMINE [TOPICAL] Topical 1 patch, administered: 07/31/2016 11:23:00 PM The following Medications were prescribed to the patient: Transderm Scopolamine patchAttach 1 patch q 72 hours PRN N/VDisp #6No refillsSubstitution allowed. -- Antonio Padilla Dr. Zolinsey ODT 4 mg: take 1 orally every 6 hours as needed for nausea and vomiting. Dispense ten (10). No refill. Substitution is permissible. -- Antonio Padilla Dr.
--- NOTE | 2016-08-01 00:57 | ED DISCHARGE INSTRUCTIONS ---
Patient: ROE RUTLEDGE General Instructions [facility] VisitID: [id number] [place] [address] 56y, F Registration Date/Time: 07/31/2016 Congenital hydrocephalus. Chronic dizziness INSTRUCTIONS Your Current Medications: CONTINUE TAKING THE FOLLOWING MEDICATIONS: Amitriptyline HCl Oral : 10 mg daily. Atenolol* : pt unsure of dose. Baclofen* : 10mg 1-2 x daily PRN. FLUoxetine HCl Oral : 40 mg 2x a day. Hydrochlorothiazide Oral : 25 mg daily. Naproxen Oral. Oxycodone-Acetaminophen Oral : 5/325 mg 4x a day. Tramadol* : 50mg 4x a day. Prescription Medications: Zofran ODT 4 mg: take 1 orally every 6 hours as needed for nausea and vomiting. Dispense ten (10). No refill. Substitution is permissible. Transderm Scopolamine patch Attach 1 patch q 72 hours PRN N/V Disp #6 No refills Substitution allowed. Follow-up: Follow up with doctor Dr. Raj Bacon [phone] in about two days. Call for an appointment. ADDITIONAL INFORMATION Vertigo [Unknown Cause] The "inner ear" is located behind the middle ear. It is part of the balance center of your body. Disease of the inner ear causes vertigo -- a false feeling of motion. It feels as if you or the room is spinning. A vertigo attack may cause sudden nausea, vomiting and heavy sweating. Severe vertigo causes a loss of balance and can cause you to fall. During vertigo, small head movements and changes in body position will often make the symptoms worse. The causes of vertigo include: Inflammation of the inner ear Disease of the nerves to the inner ear Movement of calcium particles in the inner ear Poor blood flow to the balance centers of the brain An episode of vertigo may last seconds, minutes or hours. Once you are over the first episode, it may never return. However, sometimes symptoms may recur off and on over several weeks or longer, depending on the cause. There may be ringing in the ears or hearing loss, which may be temporary or permanent. Home Care: If symptoms are severe, rest quietly in bed. Change positions very slowly. There is usually one position that will feel best, such as lying on one side or lying on your back with your head slightly raised on pillows. Do not drive or work with dangerous machinery for one week after symptoms go away, in case the symptoms suddenly return. Take medicine as prescribed to relieve your symptoms. Unless another medicine was prescribed for nausea, vomiting and vertigo, you may use gici-kyi-oxvttdt motion sickness pills, such as meclizine (Bonine, Bonamine, Antivert) or dimenhydrinate (Dramamine). Follow Up with your doctor or as directed by our staff. Tell the doctor if your ears keep ringing, or if your hearing does not return to normal. Get Prompt Medical Attention if any of the following occur: Vertigo gets worse and is not controlled by medicine prescribed Repeated vomiting not relieved by medicine prescribed Increased weakness or fainting Severe headache or unusually drowsy or confused Weakness of an arm or leg or one side of the face Difficulty with speech or vision Ondansetron Oral disintegrating tablet What is this medicine? ONDANSETRON (on GILDA se reza) is used to treat nausea and vomiting caused by chemotherapy. It is also used to prevent or treat nausea and vomiting after surgery. How should I use this medicine? These tablets are made to dissolve in the mouth. Do not try to push the tablet through the foil backing. With dry hands, peel away the foil backing and gently remove the tablet. Place the tablet in the mouth and allow it to dissolve, then swallow. While you may take these tablets with water, it is not necessary to do so. Talk to your vault keeper regarding the use of this medicine in children. Special care may be needed. What side effects may I notice from receiving this medicine? Side effects that you should report to your doctor or health veterinarian laboratory animal care as soon as possible: allergic reactions like skin rash, itching or hives, swelling of the face, lips, or tongue breathing problems dizziness fast or irregular heartbeat feeling faint or lightheaded, falls fever and chills swelling of the hands and feet tightness in the chest Side effects that usually do not require medical attention (report to your doctor or health veterinarian laboratory animal care if they continue or are bothersome): constipation or diarrhea headache What may interact with this medicine? Do not take this medicine with any of the following medications: -apomorphine -cisapride -dofetilide -dronedarone -pimozide -thioridazine -ziprasidone This medicine may also interact with the following medications: -carbamazepine -phenytoin -rifampicin -tramadol -other medicines that prolong the QT interval (cause an abnormal heart rhythm) What if I miss a dose? If you miss a dose, take it as soon as you can. If it is almost time for your next dose, take only that dose. Do not take double or extra doses. Where should I keep my medicine? Keep out of the reach of children. Store between 2 and 30 degrees C (36 and 86 degrees F). Throw away any unused medicine after the expiration date. What should I tell my health care provider before I take this medicine? They need to know if you have any of these conditions: heart disease history of irregular heartbeat liver disease low levels of magnesium or potassium in the blood an unusual or allergic reaction to ondansetron, granisetron, other medicines, foods, dyes, or preservatives or trying to get breast-feeding What should I watch for while using this medicine? Check with your doctor or health veterinarian laboratory animal care as soon as you can if you have any sign of an allergic reaction. You have been given the following additional information: Vertigo, Unspecified Ondansetron Oral disintegrating tablet (Electronically signed by Antonio Padilla Dr. 08/01/2016 0:56)
--- NOTE | 2016-08-01 00:57 | ED MAR SUMMARY ---
..... Medication Administration Record [facility] [address] [place] [address] Patient: ROE RUTLEDGE Visit ID: [id number] 56y, F Weight: 74.8 kg Height/Length: 65 in BMI: 27.5 ALLERGIES: No Known Drug Allergy Start 21:56 07/31/2016 Mohan Falk RTashN., Stop 23:05 07/31/2016 Mohan Falk R.N. Medication Administered: IV NS (SALINE), Dose: IV Fluids over 1 hour(s), Rate: 1000 mL/hr, Dispensed: 1000 mL bag, Site: #1 left forearm. Medication Ordered: IV NS : initial bolus none -, then 1000 mL/hr for X1 (NOW). Given 22:00 07/31/2016 Mohan Falk RTashNTash Medication Administered: ZOFRAN [IVP] (ONDANSETRON HCL), Dose: 4 mg IVP over 2 minute(s), Site: #1 left forearm. Medication Ordered: Zofran IV 4 mg (NOW). Given 23:23 07/31/2016 Mohan Falk RTashN. Medication Administered: SCOPOLAMINE [TOPICAL], Dose: 1 patch Topical. Medication Ordered: Scopolamine Topical 1 patch (NOW).
== END 2016-08-01 00:25 | disposition home or self-care (01) ==
LOC: ED SRH 19:34
DX: R42 Dizziness and giddiness (principal); Q03.9 Congenital hydrocephalus, unspecified; I10 Essential (primary) hypertension
CPT/HCPCS: 90004; 90100; 95059